=== PATIENT | male | born 1935 | race Caucasian/White ===

== ENCOUNTER → 2023-06-18 12:15 | Outpatient (BNVA) | payer MEDICARE, SELFPAY | PROVIDERS: PCP Internal Medicine; Visit Provider Nurse Practitioner | DX: K62.5 Hemorrhage of anus and rectum (principal); I48.91 Unspecified atrial fibrillation; I50.22 Chronic systolic (congestive) heart failure; J96.10 Chronic respiratory failure, unspecified whether with hypoxia or hypercapnia; J44.9 Chronic obstructive pulmonary disease, unspecified; G47.33 Obstructive sleep apnea (adult) (pediatric); N18.30 Chronic kidney disease, stage 3 unspecified; Z79.01 Long term (current) use of anticoagulants; Z99.81 Dependence on supplemental oxygen; Z66 Do not resuscitate | CPT/HCPCS: 99202 ==

== ENCOUNTER 2023-06-18 12:16 | Outpatient (AMB) | payer MEDICARE, SELFPAY ==
--- NOTE | 2023-06-18 12:21 | MHC.OFFVIS ---
Intake Vital Signs 06/18/23 12:24 Height 5 ft 4 in BMI Reason not done Patient refused/unable BP 118/59 L Blood Pressure Location Lt brachial Position Sitting Pulse 60 Intake Visit Reasons: Guiac positive stool x3 Intake Note: Duane presents in the office as a new patient. CC: Here today for GUIAC + Stools. States that he is having BMs every day. He states his BMs are black when he does go. Depending on what he eats will decide on if the stool will be hard or loose. Allergies levofloxacin [From Levaquin] Allergy (Mild, Verified 06/18/23 12:29) Unknown Fish Containing Products Allergy (Unknown, Verified 06/18/23 12:29) Unknown oxycodone Allergy (Unknown, Verified 06/18/23 12:29) Unknown Penicillins Allergy (Unknown, Verified 06/18/23 12:29) Unknown Sulfa (Sulfonamide Antibiotics) Allergy (Unknown, Verified 06/18/23 12:29) Unknown BEES Allergy (Unknown, Uncoded 06/18/23 12:29) Unknown EGGS Allergy (Unknown, Uncoded 06/18/23 12:29) Unknown GRAVY Allergy (Unknown, Uncoded 06/18/23 12:29) Unknown TOMATOES Allergy (Unknown, Uncoded 06/18/23 12:29) Unknown HPI Guiac positive stool x3 HPI Details 88-year-old male here for an evaluation for guaiac-positive stools. He is referred by [facility] in [facility] PMX CASI COPD Chronic respiratory failure SPACE-ON OXYGEN 3-4 L NASAL CANNULA Atrial fibrillation -- ON ELIQUIS Coronary artery disease Hypertension High cholesterol Chronic systolic congestive heart failure -EJECTION FRACTION 25% Chronic kidney disease stage 3 Gout History of prostate cancer Oral phase dysphagia Patient is a DNR ANEMIA Osteoporosis Anxiety/depression GERD History of diverticulitis Nephrolithiasis Chronic loose stools * SURGICAL HISTORY CABG * THE ALLERGIES Oxycodone Penicillin Sulfa Bees Eggs Fish Tomatoes Gravy * LABS SUPPLIED BY PCP: 03/2023 CBC shows normocytic, normo so chromic anemia of 8.9/28.8, platelets 200, GFR 49, no hepatic information TODAY'S VISIT Patient is here unaccompanied and he is unaware of the reason he has been referred. He is extremely hard of hearing but objectively denies seeing any red blood in his stools. Reviewing his extensive high risk medical history I think that doing an EGD/colonoscopy would be extremely risky. If they feel that this is necessary I recommend that they refer him to a tertiary center better equipped to handle any life-threatening complications that may arise such as [facility] or [facility]. He would be too high risk in 2 complex for a local [facility] such as [facility]. I have written this up for him and sent it back to the facility. [facility] Medical History History of prostate cancer Surgical History Hx of CABG Review of Systems Const Denies fatigue, Denies fever(s), Denies night sweats, Denies poor appetite and Denies weight loss Eyes Reports requires corrective lenses ENT Denies Normal hearing present, Denies dental pain, Denies dysphagia, Denies hearing loss, Denies mouth pain, Denies odynophagia, Denies throat swelling, Denies tongue swelling and Reports other (Dentition adequate) GI Denies abdominal pain, Denies melena, Denies bloating, Denies hematochezia, Denies constipation, Denies GI cramping, Denies dysphagia, Denies excessive flatus, Denies early satiety, Denies heartburn, Denies diarrhea, Denies nausea, Denies odynophagia, Denies vomiting and Denies hematemesis Musc Reports abnormal gait Skin/Breast Denies pruritus, Denies lesions, Denies rash and Denies jaundice Neuro Denies Normal hearing present, Denies Abnormal speech present and Reports abnormal gait Endo Denies fatigue Aller/Immun Denies throat swelling and Denies tongue swelling Physical Exam Vital Signs: Last Vital Signs Pulse 60 06/18/23 12:24 BP 118/59 L 06/18/23 12:24 Const General: cooperative, no acute distress, well developed and well groomed Nutritional Appearance: well nourished and thin Orientation/consciousness: oriented to person and oriented to place Limitations: No language barrier, wheelchair and other limitations (Hearing and? Memory) HEENT Head: Yes normocephalic and Yes atraumatic Eyes General: appearance normal, both eyes and all related structures Pupils: Equal, round and reactive pupils present Neck Neck: Yes normal visual inspection and Yes no lymphadenopathy Thyroid: Thyroid normal Resp Effort & Inspection: normal respiratory effort and grunting Skin General skin exam: no rashes or lesions noted, skin not dry, no jaundice, No spider nevi and no striae Rashes: no rashes Nails: normal Neuro General: oriented to person and oriented to place Cranial nerves: Yes Equal, round and reactive pupils present and No Normal hearing present Speech: No Abnormal speech present Psych Appearance: grossly normal and well kempt Mental Status: other Speech and movement: Other speech and movement exam findings present (Psych) Affect: normal affect Attitude: cooperative Thought process: not confabulating and Other thought process findings present Thought content: other Insight: Poor insight present (Psych) Judgement: Poor judgement present (Psych) Assessment & Plan Assessment & Plan (1) Rectal bleeding: Code(s): K62.5 - Hemorrhage of anus and rectum (2) Atrial fibrillation: Code(s): I48.91 - Unspecified atrial fibrillation (3) Chronic systolic heart failure: Comment: EJECTION FRACTION OF 25% Code(s): I50.22 - Chronic systolic (congestive) heart failure (4) Oxygen dependent: Code(s): Z99.81 - Dependence on supplemental oxygen (5) Chronic respiratory failure: Code(s): J96.10 - Chronic respiratory failure, unspecified whether with hypoxia or hypercapnia (6) COPD (chronic obstructive pulmonary disease): Code(s): J44.9 - Chronic obstructive pulmonary disease, unspecified (7) CASI (obstructive sleep apnea): Code(s): G47.33 - Obstructive sleep apnea (adult) (pediatric) (8) Chronic anticoagulation: Comment: ON ELIQUIS Code(s): Z79.01 - terminal operator (current) use of anticoagulants (9) Chronic kidney disease, stage 3: Code(s): N18.30 - Chronic kidney disease, stage 3 unspecified (10) DNR (do not resuscitate): Code(s): Z66 - Do not resuscitate (11) DNI (do not intubate): Code(s): Z78.9 - Other specified health status Plan Patient is here unaccompanied and he is unaware of the reason he has been referred. He is extremely hard of hearing but objectively denies seeing any red blood in his stools. Reviewing his extensive high risk medical history I think that doing an EGD/colonoscopy would be extremely risky. If they feel that this is necessary I recommend that they refer him to a tertiary center better equipped to handle any life-threatening complications that may arise such as [facility] or [facility]. He would be too high risk in 2 complex for a local [facility] such as [facility]. I have written this up for him and sent it back to the facility. Coding Level of Care Code New Pt Level 3 (45908) Diagnoses Rectal bleeding K62.5 Atrial fibrillation I48.91 Chronic systolic heart failure I50.22 Oxygen dependent Z99.81 Chronic respiratory failure J96.10 COPD (chronic obstructive pulmonary disease) J44.9 CASI (obstructive sleep apnea) G47.33 Chronic anticoagulation Z79.01 Chronic kidney disease, stage 3 N18.30 DNR (do not resuscitate) Z66 DNI (do not intubate) Z78.9
[2023-06-18 12:24] VITALS: BP 118/59; PULSE 60
== END 2023-06-18 12:53 | disposition home or self-care (01) ==
PROVIDERS: PCP Internal Medicine; Visit Provider Nurse Practitioner
DX: K62.5 Hemorrhage of anus and rectum (principal); I48.91 Unspecified atrial fibrillation; I50.22 Chronic systolic (congestive) heart failure; Z99.81 Dependence on supplemental oxygen; J96.10 Chronic respiratory failure, unspecified whether with hypoxia or hypercapnia; J44.9 Chronic obstructive pulmonary disease, unspecified; G47.33 Obstructive sleep apnea (adult) (pediatric); Z79.01 Long term (current) use of anticoagulants; N18.30 Chronic kidney disease, stage 3 unspecified; Z66 Do not resuscitate; Z78.9 Other specified health status
CPT/HCPCS: 99203